=== PATIENT | female | born 1960 | race Caucasian/White ===

== ENCOUNTER 2023-06-17 08:30 | Day surgery (SDC) | payer MEDICARE, BC ==
[~2023-06-17] VITALS: Ht 162.6 cm; Wt 78.6 kg
[2023-06-17 09:40] VITALS: BP 122/76; PULSE 68; RESP 16
[2023-06-17] MEDS ORDERED: fentaNYL/PF 50MCG/1 ML 2ML syringe ONE (10:42)
[2023-06-17] MEDS ORDERED: MIDAZolam 1 MG/ML 5ML VIAL ONE (10:42)
[2023-06-17] MEDS ORDERED: LIDOcaine Viscous 15ml cup ONE (10:42)
[2023-06-17 11:24] VITALS: BP 104/57; PULSE 64; RESP 16; O2SAT 96
[2023-06-17 11:34] VITALS: BP 100/69; PULSE 82; RESP 16; O2SAT 96
[2023-06-17 11:44] VITALS: BP 106/60; PULSE 64; RESP 16; O2SAT 97
[2023-06-17 11:54] VITALS: BP 123/59; PULSE 81; RESP 16; O2SAT 97
== END 2023-06-17 12:14 ==
LOC: GI LAB 08:30
PROVIDERS: ATTEND Internal Medicine Gastroenterology
DX: K52.9 Noninfective gastroenteritis and colitis, unspecified (principal); R13.10 Dysphagia, unspecified; K29.50 Unspecified chronic gastritis without bleeding; K29.00 Acute gastritis without bleeding; G43.909 Migraine, unspecified, not intractable, without status migrainosus; E11.9 Type 2 diabetes mellitus without complications; Z79.899 Other long term (current) drug therapy; Z87.19 Personal history of other diseases of the digestive system
CPT/HCPCS: 43239; 45380; G0500; J2250; J3010; J7030; Z7512; 99152; A4620

== ENCOUNTER 2025-06-22 01:12 | Emergency (ER) | payer MEDICARE, BC, MEDICAID ==
[~2025-06-22] VITALS: Ht 162.6 cm; Wt 82.0 kg
--- NOTE | 2025-06-22 01:25 | Physician Documentation ---
History of Present Illness ~ Chief Complaint: Constipation Stated Complaint: PELVIS PAIN Time Seen by MD: 01:24 Source: patient, EMS, EMS notes reviewed, [facility] records Mode of Arrival: EMS Exam Limitations: no limitations HPI Chief Complaint: Constipation, worsening pelvic pain Caveat: None Independent Historians: Paramedics History of Present Illness: Patient is a 64-year-old woman brought in by paramedics from [facility] who has chronic pelvic pain described as sharp that has in between her legs and in her vagina. Patient states that her pain gets worse when she has constipation. Patient states that she has a moved her bowels for three days. Patient is requesting a stool softener. Patient denies any fevers. No nausea vomiting diarrhea. No upper abdominal pain. No fever. Patient was upset that the correction home would not give her a stool softener and that has why she is here. Patient has had six ER visits over the last weekend at [facility] for multiple different complaints. There was some concern for drug-seeking behavior. Review of systems: All systems were reviewed and are negative except for what is indicated in the history of present illness. Past Medical History: Chronic pelvic pain, constipation, UTI, pelvic floor dysfunction Past Surgical History: Pelvic floor surgery Social History: No tobacco use, no alcohol use, no drug use Medications: Reviewed as documented Nursing Notes Allergies: Reviewed as documented in Nursing Notes Medication Reconciliation Allergies: Coded Allergies: Aminopyridines (Verified Allergy, Severe, 06/22/25) frovatriptan (Verified Allergy, Unknown, 06/22/25) glatiramer (copolymer 1) (Verified Allergy, Unknown, 06/22/25) omega-3 acid ethyl esters (Verified Allergy, Unknown, 06/22/25) phentermine (Verified Allergy, Unknown, 06/22/25) sumatriptan (Verified Allergy, Unknown, 06/22/25) Physical Exam Vital Signs: RN Vital Signs have been reviewed: Yes, Temperature: 98.2, Source: Oral, Heart Rate: 67, Respiratory Rate: 19, BP: 127/58, Pulse Oximetry: 97, Weight: 82.000 Pulse Oximetry Reflects: adequate oxygenation Physical Exam General Appearance: MILD DISTRESS, CHRONICALLY ILL-APPEARING HEENT: Normal OP, moist oral mucosa, PERRL, EOMI Neck: supple, normal ROM, trachea midline Pulmonary: No respiratory distress, CTA, BS equal Cardiac: RRR, no murmur, rub or gallop, GI: nondistended, soft, nontender, normal bowel sounds, no guarding, no rebound : SUPRAPUBIC TENDERNESS Extremities: normal ROM, no swelling, non-tender Skin: intact, dry, warm, no rashes Neuro: AAOx3, speech is clear, no focal motor weakness Psych: normal affect, good eye contact, no apparent hallucination, normal speech Progress Results/Orders Results/Orders Completed Orders - ADRIAN IRAHETA MD Magnesium Hydrox Oral Susp. (Milk Of Mag (06/22/25 01:25) Ketorolac Trometh 15mg/Ml Vial (Toradol (06/22/25 01:25) Medications Received in ER Medications (Trade) Dose Ordered Sig/Brianna Route PRN Reason Start Time Stop Time Status Last Admin Dose Admin (milk of magnesia oral suspension) 30 ml ONCE ONCE PO 06/22/25 01:25 06/22/25 01:26 DC 06/22/25 01:35 30 ML (Toradol injection) 15 mg ONCE ONCE IM 06/22/25 01:25 06/22/25 01:26 DC 06/22/25 01:33 15 MG Vital Signs 06/22/25 06/22/25 06/22/25 01:16 01:33 01:38 Temp 98.2 98.2 Pulse 67 67 Resp 19 14 14 B/P (MAP) 127/58 111/52 Pulse Ox 97 96 Medical Decision Making Findings Differential diagnosis includes but is not limited to: Chronic pelvic pain, the patient Emergency department course/medical decision-making: Patient only wishes to have a stool softener and something for pain. Patient does not have any fever or other symptoms such as dysuria. Patient has chronic pelvic pain secondary to pelvic floor dysfunction. Patient is given milk of magnesia and Toradol 15 mg IM. Patient is afebrile and hemodynamically stable. Patient has a normal abdominal exam. Patient does not require imaging or lab work. There was no evidence of a medical or surgical emergency based on the history and physical. Patient is stable for discharge back to [facility]. Departure Time of Disposition: 01:24 Disposition: 03 [facility] Impression: Primary Impression: Constipation Qualified Codes: K59.00 - Constipation, unspecified Additional Impression: Chronic pelvic pain in female Discharge Instructions: Chronic Pain, Adult, Constipation, Adult Additional Instructions: FOLLOW UP WITH YOUR SPECIALIST FOR YOUR CHRONIC PAIN. Education Educated: Patient Educated regarding: diagnosis, treatment, need for follow up Signature Scribe Signature: NO SCRIBE Attestation: NO SCRIBE ADRIAN IRAHETA MD Jun 22, 2025 01:25
[2025-06-22] MEDS: ketorolac trometh 15mg/ml vial 15 MG/ML ML IM ONE (01:33)
[2025-06-22] MEDS: magnesium hydroxide 30ml (MOM) UD suspension PO ONE (01:35)
[2025-06-22 01:38] VITALS: BP 111/52; PULSE 67; RESP 14; TEMP 98.2; O2SAT 96
== END 2025-06-22 02:12 ==
LOC: ER 01:13
DX: K59.00 Constipation, unspecified (principal); R10.2 Pelvic and perineal pain
CPT/HCPCS: 96372; 99283; J1885

== ENCOUNTER 2025-06-26 01:00 | Emergency (ER) | payer MEDICARE, BC, MEDICAID ==
[~2025-06-26] VITALS: Ht 162.6 cm; Wt 72.7 kg
[2025-06-26 02:51] LABS: LEUKOCYTE ESTERASE ,URINE TRACE (Neg); NITRITES, URINE NEGATIVE (Neg); OCCULT BLOOD,URINE SMALL (Neg)
[2025-06-26 02:55] LABS: UA COLLECTION TYPE FOLEY CATH
[2025-06-26 03:18] LABS: MUCUS STRANDS FEW /LPF (Neg); SQUAMOUS EPITHELIAL CELL,UR FEW /LPF (FEW)
--- NOTE | 2025-06-26 03:35 | Physician Documentation ---
History of Present Illness ~ Chief Complaint: Vaginal pain Stated Complaint: PELVIC PAIN Time Seen by MD: 03:27 HPI Patient presents to the emergency room with chronic pelvic pain and headache. Patient has history of chronic pelvic pain that has seen here earlier this week for it and given constipation medications for it. Patient concerned today as she has significant headache. Patient does have history of headaches. No fevers. Medication Reconciliation Allergies: Coded Allergies: Aminopyridines (Verified Allergy, Severe, 06/26/25) frovatriptan (Verified Allergy, Unknown, 06/26/25) glatiramer (copolymer 1) (Verified Allergy, Unknown, 06/26/25) omega-3 acid ethyl esters (Verified Allergy, Unknown, 06/26/25) phentermine (Verified Allergy, Unknown, 06/26/25) sumatriptan (Verified Allergy, Unknown, 06/26/25) Review of Systems ROS All review of systems negative except as per HPI Physical Exam Vital Signs: Temperature: 97.7, Source: Oral, Heart Rate: 68, Respiratory Rate: 14, BP: 102/62, Pulse Oximetry: 92, Weight: 72.730 Oxygen Flow Rate: 0 Physical Exam General: Patient is sleeping, easily arousable in no acute distress Head: Normocephalic and atraumatic. No tenderness to palpation over temporal arteries Eyes: Conjunctival normal. EOMI. PERRL. ENT: Mucous membranes moist. Neck: Supple, trachea is midline. No meningismus Chest: Clear to auscultation bilaterally without rales, rhonchi, or wheezes. There is no accessory muscle use or retractions. Cardiac: RRR without murmurs, gallops, or rubs. Abd: Soft, nondistended, nontender, with normoactive bowel sounds. No guarding, rebound, or rigidity. Neuro: Cranial nerves II-XII grossly intact. No focal neuro deficits. Progress Results/Orders Results/Orders Orders - NAHUN MONGE MD Straight Cath For Urine Sample (06/26/25 01:14) Cult Urine + [place] [address] (06/26/25 03:19) Completed Orders - NAHUN MONGE MD Ua W/Microscopic, Cult If Ind (06/26/25 01:59) Cbc/Diff (06/26/25 03:32) BMP (06/26/25 03:32) Procalcitonin (06/26/25 03:32) Normal Saline 1000ml (0.9% Sodium Chlori (06/26/25 03:35) Acetaminophen 1,000mg/100ml Iv (Ofirmev (06/26/25 03:35) Medications Received in ER Medications (Trade) Dose Ordered Sig/Brianna Route PRN Reason Start Time Stop Time Status Last Admin Dose Admin Sodium Chloride 1,000 ml @ 1,000 mls/hr ONCE ONCE IV 06/26/25 03:35 06/26/25 04:34 DC 06/26/25 04:02 1,000 MLS/HR Acetaminophen 100 ml @ 400 mls/hr ONCE ONCE IV 06/26/25 03:35 06/26/25 03:50 DC 06/26/25 04:03 400 MLS/HR Vital Signs 06/26/25 06/26/25 06/26/25 01:08 02:31 04:17 Temp 97.7 97.7 97.7 Pulse 66 68 64 Resp 14 14 14 B/P (MAP) 113/66 102/62 (75) 106/63 (77) Pulse Ox 95 92 95 O2 Flow Rate 0 0 0 Laboratory Tests Test 06/26/25 01:59 06/26/25 04:06 Urine Specimen Description Monahan cath Urine Color Yellow Urine Clarity Clear Urine pH 6.0 Urine Specific [place] <=1.005 Urine Protein Negative Urine Glucose (UA) Negative Urine Ketones Negative Urine Occult Blood Small Urine Nitrite Negative Urine Bilirubin Negative Urine Urobilinogen 0.2 Urine Leukocyte Esterase Trace H Urine RBC 3-10 Urine WBC 0-4 Urine Squamous Epithelial Cells Few Urine Bacteria None seen Urine Mucus Few Urine Culture Indicated Indicated Volume Urine Centrifuged 10 ml Urine Comment White Blood Count 5.3 Red Blood Count 4.16 L Hemoglobin 12.1 Hematocrit 37.3 Mean Corpuscular Volume 89.7 Mean Corpuscular Hemoglobin 29.0 Mean Corpuscular Hemoglobin Concent 32.4 L Red Cell Distribution Width 15.8 H Platelet Count 310 Mean Platelet Volume 8.1 Neutrophils (%) (Auto) 53.1 Lymphocytes (%) (Auto) 32.2 Monocytes (%) (Auto) 6.8 Eosinophils (%) (Auto) 7.1 H Basophils (%) (Auto) 0.8 Neutrophils # (Auto) 2.8 Lymphocytes # (Auto) 1.7 Monocytes # (Auto) 0.4 Eosinophils # (Auto) 0.4 Basophils # (Auto) 0.0 CBC Comment Sodium Level 142 Potassium Level 3.8 Chloride Level 106 Carbon Dioxide Level 27.7 Anion Gap 8 Blood Urea Nitrogen 25 H Creatinine 0.78 Estimated GFR/1.73 m2 74 BUN/Creatinine Ratio 32.1 H Glucose Level 132 H Calcium Level 9.2 Albumin 3.5 Procalcitonin < 0.05 Chemistry Comments Microbiology Date/Time Source Procedure Growth Status 06/26/25 03:19 Urine Monahan Cath Urine Culture - Preliminary Culture received. Resulted Medical Decision Making Findings Patient presents to the emergency room for evaluation headache and chronic pelvic pain. Patient is sleeping and he had not feel she requires CT scan of her head. No meningismus. Labs reassuring. Departure Disposition: HOME / SELF CARE / HOMELESS Impression: Primary Impression: Chronic pelvic pain in female Additional Impression: Headache Condition: Improved Discharge Instructions: Pelvic Pain, Female, [id number] Referrals: NO PRIMARY CARE PROVIDER (PCP) Signature Scribe Signature: No scribe Attestation: The note accurately reflects work and decisions made by me.Nahun Monge MD 06/26/25 04:50 NAHUN MONGE MD Jun 26, 2025 03:34
[2025-06-26] MEDS: normal saline 1000ml 1,000 ML IV ONE (04:02)
[2025-06-26] MEDS: acetaminophen 1,000mg/100ml IV 100 ML IV ONE (04:03)
[2025-06-26 04:17] LABS: MEAN PLATELET VOLUME 8.1 FL (7.4-10.4); RED CELL DISTRIBUTION WIDTH 15.8 % (11.5-14.5)
[2025-06-26 04:26] LABS: CREATININE 0.78 MG/DL (0.40-0.90); TOTAL CARBON DIOXIDE 27.7 MMOL/L (24-32); eCRCL 62 ML/MIN; eGFR 74 ML/MIN
[2025-06-26 05:04] VITALS: BP 130/78; PULSE 68; RESP 14; TEMP 97.7; O2SAT 98
== END 2025-06-26 09:38 | disposition home or self-care (01) ==
LOC: ER 01:01
DX: G89.29 Other chronic pain (principal); R10.2 Pelvic and perineal pain; R51.9 Headache, unspecified
CPT/HCPCS: 36415; 80048; 81001; 84145; 85025; 87088; 96361; 96374; 99284; J0131; J7030

== ENCOUNTER 2025-06-28 04:09 | Emergency (ER) | payer MEDICARE, BC, MEDICAID ==
[~2025-06-28] VITALS: Ht 162.6 cm; Wt 82.7 kg
[2025-06-28 04:25] VITALS: BP 92/54; PULSE 72; RESP 16; TEMP 98.1; O2SAT 92
--- NOTE | 2025-06-28 05:37 | Physician Documentation ---
History of Present Illness ~ Chief Complaint: Abdominal Pain Stated Complaint: GENERAL PAIN M BLS Time Seen by MD: 05:17 HPI Patient presents to the emergency room for evaluation of chronic pelvic pain. She lives at an assisted living facility and she was not due for her pain medicine therefore she insisted to come to the emergency room. EMS explained to her by the time that she is probably seen at the emergency room it would be time for pain medication any ways however patient insisted on coming to the emergency room. Currently she is sleeping comfortably in her bedroom. I saw the patient for the same complaint two nights ago. Medication Reconciliation Allergies: Coded Allergies: Aminopyridines (Verified Allergy, Severe, 06/26/25) frovatriptan (Verified Allergy, Unknown, 06/26/25) glatiramer (copolymer 1) (Verified Allergy, Unknown, 06/26/25) omega-3 acid ethyl esters (Verified Allergy, Unknown, 06/26/25) phentermine (Verified Allergy, Unknown, 06/26/25) sumatriptan (Verified Allergy, Unknown, 06/26/25) Review of Systems ROS All review of systems negative except as per HPI Physical Exam Vital Signs: Temperature: 98.1, Source: Oral, Heart Rate: 72, Respiratory Rate: 16, BP: 92/54, Pulse Oximetry: 92, Weight: 82.700 Physical Exam General: Patient is sleeping comfortably, easily arousable in no acute distress Head: Normocephalic and atraumatic. Eyes: Conjunctival normal. EOMI. PERRL. ENT: Mucous membranes moist. Neck: Supple, trachea is midline. Chest: Clear to auscultation bilaterally without rales, rhonchi, or wheezes. There is no accessory muscle use or retractions. Cardiac: RRR without murmurs, gallops, or rubs. : Deferred Progress Results/Orders Results/Orders Vital Signs 06/28/25 04:25 Temp 98.1 Pulse 72 Resp 16 B/P (MAP) 92/54 Pulse Ox 92 Medical Decision Making Findings Patient presented to the emergency room for evaluation of chronic pelvic pain as per HPI. Patient's pain is chronic in nature. Patient is due for her pain medicine and 10 minutes and I will discharge her back to her facility for it. Departure Disposition: 01 HOME / SELF CARE / HOMELESS Impression: Primary Impression: Chronic pelvic pain in female Condition: Stable Discharge Instructions: General Discharge Instructions Referrals: NO PRIMARY CARE PROVIDER (PCP) Signature Scribe Signature: No scribe Attestation: The note accurately reflects work and decisions made by me.Nahun Monge MD 06/28/25 05:36 NAHUN MONGE MD Jun 28, 2025 05:37
== END 2025-06-28 06:41 | disposition home or self-care (01) ==
LOC: ER 04:10
DX: G89.29 Other chronic pain (principal); R10.2 Pelvic and perineal pain
CPT/HCPCS: 99283

== ENCOUNTER 2025-08-28 17:02 | Emergency (ER) | payer MEDICARE, BC, MEDICAID ==
[~2025-08-28] VITALS: Ht 160 cm; Wt 65.8 kg
--- NOTE | 2025-08-28 18:40 | Physician Documentation ---
History of Present Illness ~ Chief Complaint: Mental Health Eval Stated Complaint: UTI SYMPTOMS Time Seen by MD: 18:29 HPI Patient presents to the emergency room with thoughts of harming herself secondary to chronic pain associated with her pelvic area. She reports that she has been having a suprapubic catheter for some time and whenever she gets a urinary tract infection she begins suffering from this pain. She reports that has a doctors do not want to treat her urinary tract infection as she has colonized. She endorses suicidal thoughts. This is patient's 4th visit in two months here at [facility] and Patient has had six ER visits over at [facility] for multiple different complaints before that in a short period of time. Medication Reconciliation Allergies: Coded Allergies: Aminopyridines (Verified Allergy, Severe, 08/28/25) frovatriptan (Verified Allergy, Unknown, 08/28/25) glatiramer (copolymer 1) (Verified Allergy, Unknown, 08/28/25) omega-3 acid ethyl esters (Verified Allergy, Unknown, 08/28/25) phentermine (Verified Allergy, Unknown, 08/28/25) sumatriptan (Verified Allergy, Unknown, 08/28/25) Scheduled Atogepant (Qulipta), 1 TAB PO DAILY, (Reported) Clonidine HCl (Clonidine HCl), 1 TAB PO BID, (Reported) Clopidogrel Bisulfate (Clopidogrel), 1 TAB PO DAILY, (Reported) Duloxetine HCl (Duloxetine HCl), 1 CAP PO DAILY, (Reported) Fosfomycin Tromethamine (Fosfomycin Tromethamine), 1 PO ONCE, (Reported) Gabapentin (Gabapentin), 1 TAB PO TID, (Reported) Levetiracetam (Levetiracetam), 2 TAB PO BID, (Reported) Memantine HCl (Memantine HCl), 1 TAB PO HS, (Reported) Metformin HCl (Metformin HCl), 1 TAB PO DAILY, (Reported) Oxybutynin Chloride (Oxybutynin Chloride), 1 TAB PO TID, (Reported) Pantoprazole Sodium (Pantoprazole Sodium), 1 TAB PO DAILY, (Reported) Phenazopyridine Hcl* (Phenazopyridine Hcl*), 1 TAB PO Q8H, (Reported) Risperidone (Risperidone), 1 TAB PO HS, (Reported) Scheduled PRN ONDANSETRON ODT 4mg tablet (Ondansetron Odt), 1 TAB PO Q8H PRN for nausea/vomiting, (Reported) Miscellaneous Medications Estradiol (Estradiol), (Reported) Oxycodone Hcl IR* (Oxycodone IR*), (Reported) Durable Medical Equipment Syringe,Safety W-Ndl,3Ml (Integra Syringe), IM, (Reported), (DME) Review of Systems ROS All review of systems negative except as per HPI Physical Exam Vital Signs: Temperature: 98.4, Source: Temporal, Heart Rate: 79, Respiratory Rate: 14, BP: 148/90, Pulse Oximetry: 93, Weight: 65.800 Oxygen Flow Rate: 0 Physical Exam General: Patient is awake, alert, oriented x4 in no acute distress Head: Normocephalic and atraumatic. Eyes: Conjunctival normal. EOMI. PERRL. ENT: Mucous membranes moist. Neck: Supple, trachea is midline. Chest: Clear to auscultation bilaterally without rales, rhonchi, or wheezes. There is no accessory muscle use or retractions. Cardiac: RRR without murmurs, gallops, or rubs. Abd: Soft, nondistended, nontender, with suprapubic catheter in place. No signs of infection Psych: Cooperative, good eye contact, suicidal Progress Results/Orders Results/Orders Orders - NAHUN MONGE MD 1799.11 (08/28/25 18:40) Vital Signs 08/28/25 08/28/25 17:25 19:30 Temp 98.4 Pulse 79 Resp 14 20 B/P (MAP) 148/90 Pulse Ox 93 O2 Flow Rate 0 Laboratory Tests Test 08/28/25 18:22 08/28/25 19:19 08/28/25 20:23 White Blood Count 6.5 Red Blood Count 3.78 L Hemoglobin 11.1 L Hematocrit 34.3 L Mean Corpuscular Volume 90.9 Mean Corpuscular Hemoglobin 29.4 Mean Corpuscular Hemoglobin Concent 32.3 L Red Cell Distribution Width 15.8 H Platelet Count 361 Mean Platelet Volume 7.9 Neutrophils (%) (Auto) 69.7 Lymphocytes (%) (Auto) 21.6 Monocytes (%) (Auto) 4.6 Eosinophils (%) (Auto) 3.6 Basophils (%) (Auto) 0.5 Neutrophils # (Auto) 4.5 Lymphocytes # (Auto) 1.4 Monocytes # (Auto) 0.3 Eosinophils # (Auto) 0.2 Basophils # (Auto) 0.0 CBC Comment Sodium Level 139 Potassium Level 3.9 Chloride Level 107 Carbon Dioxide Level 25.9 Anion Gap 6 L Blood Urea Nitrogen 31 H Creatinine 0.75 Estimated GFR/1.73 m2 77 BUN/Creatinine Ratio 41.3 H Glucose Level 255 H Calcium Level 7.9 L Albumin 3.3 L Thyroid Stimulating Hormone (TSH) 0.57 Chemistry Comments Ethyl Alcohol Level < 10 SARS-CoV-2 Antigen (Rapid) Negative Urine Specimen Description Suprapubic cath Urine Color Yellow Urine Clarity Turbid Urine pH 7.5 Urine Specific [place] 1.020 Urine Protein 100 H Urine Glucose (UA) 100 H Urine Ketones Negative Urine Occult Blood Small Urine Nitrite Positive H Urine Bilirubin Negative Urine Urobilinogen 0.2 Urine Leukocyte Esterase Large H Urine RBC 3-10 Urine WBC 5-10 H Urine Squamous Epithelial Cells Few Urine Amorphous Phosphates 1+ Urine Bacteria 2+ Urine Mucus Few Urine Culture Indicated Indicated Volume Urine Centrifuged 10 ml Urine Comment Drug Screen Comment Medical Decision Making Additional information obtaine: old records Findings Patient presents to the emergency room for suicidal ideation secondary to chronic pelvic pain. She has had multiple ER visits for her chronic pelvic pain. Labs reviewed and that has no evidence of major pathologic derangements. Patient is medically cleared for mental health evaluation. Noted urinary tract infection but this is reported to be chronic in nature and no antibiotics indicated that has no fever or encephalopathy. Differential Dx:Considerations: Include: Alcohol abuse, Anxiety, Bipolar disorder, Conversion disorder, Depression, Encephaloathy, Homicidal, Panic disorder, Personality disorder, Schizophrenia, Substance abuse, Suicidal, Other Departure Disposition: 30 STILL A PATIENT Impression: Primary Impression: Suicidal ideation Additional Impressions: Chronic pelvic pain in female Chronic urinary tract infection Condition: Guarded Referrals: NO PRIMARY CARE PROVIDER (PCP) Signature Scribe Signature: No scribe Attestation: The note accurately reflects work and decisions made by me.Nahun Monge MD 08/28/25 20:03 NAHUN MONGE MD Aug 28, 2025 18:40
[2025-08-28 18:51] LABS: MEAN PLATELET VOLUME 7.9 FL (7.4-10.4); RED CELL DISTRIBUTION WIDTH 15.8 % (11.5-14.5)
[2025-08-28 19:16] LABS: CREATININE 0.75 MG/DL (0.40-0.90); TOTAL CARBON DIOXIDE 25.9 MMOL/L (24-32); eCRCL 61 ML/MIN; eGFR 77 ML/MIN
[2025-08-28] MEDS ORDERED: [UNRECOGNIZED DRUG - CODE] IM (19:41)
[2025-08-28] MEDS ORDERED: RISP-31 PO (19:41)
[2025-08-28] MEDS ORDERED: LEVE750T PO (19:41)
[2025-08-28] MEDS ORDERED: CLOP75TA34 PO (19:41)
[2025-08-28] MEDS ORDERED: OXYC-658 (19:41)
[2025-08-28] MEDS ORDERED: DULO60CA65 PO (19:41)
[2025-08-28] MEDS ORDERED: METF-438 PO (19:41)
[2025-08-28] MEDS ORDERED: ESTR42.510 (19:41)
[2025-08-28] MEDS ORDERED: CLON0.3T PO (19:41)
[2025-08-28] MEDS ORDERED: ONDA-243 PO (19:41)
[2025-08-28] MEDS ORDERED: OXYB5TAB21 PO (19:41)
[2025-08-28] MEDS ORDERED: GABA-1405 PO (19:41)
[2025-08-28] MEDS ORDERED: ATOG60TA PO (19:41)
[2025-08-28] MEDS ORDERED: FOSF3PAC4 PO (19:41)
[2025-08-28] MEDS ORDERED: PHEN-888 PO (19:41)
[2025-08-28] MEDS ORDERED: MEMA10TA22 PO (19:41)
[2025-08-28] MEDS ORDERED: PANT40TA54 PO (19:41)
[2025-08-28 19:47] LABS: ETHANOL < 10 MG/DL (<10)
[2025-08-28 20:57] LABS: LEUKOCYTE ESTERASE ,URINE LARGE (Neg); NITRITES, URINE POSITIVE (Neg); OCCULT BLOOD,URINE SMALL (Neg)
[2025-08-28 21:02] LABS: UA COLLECTION TYPE SUPRAPUBIC CATH
[2025-08-28 21:03] LABS: AMORPHOUS PHOSPHATES 1+; MUCUS STRANDS FEW /LPF (Neg); SQUAMOUS EPITHELIAL CELL,UR FEW /LPF (FEW)
[2025-08-28 21:44] LABS: URINE AMPHETAMINE SCREEN NEGATIVE (Neg); URINE BARBITUATE SCREEN NEGATIVE (Neg); URINE BENZODIAZEPINES SCREEN NEGATIVE (Neg); URINE CANNABINOID SCREEN NEGATIVE (Neg); URINE COCAINE SCREEN NEGATIVE (Neg); URINE METHADONE SCREEN NEGATIVE (Neg); URINE OPIATE SCREEN NEGATIVE (Neg); URINE PHENCYCLIDINE SCREEN NEGATIVE (Neg)
[2025-08-28] MEDS ORDERED: iohexol 300mg/ml 100ml inj. ONE (22:14)
[2025-08-28] MEDS: HYDROcodone/acetaminophen 5mg/325mg tablet PO ONE (22:55)
--- NOTE | 2025-08-28 23:44 | RADIOLOGY REPORT ---
COMPUTERIZED TOMOGRAPHY ABDOMEN AND PELVIS WITH CONTRAST REASON FOR EXAM: suspected abcess. Pain. COMPARISON: None TECHNIQUE: The exam was performed on a Multidetector scanner. Spiral scans were acquired from the diaphragm to the symphysis pubis after administration of IV contrast. 2-D coronal and sagittal reformatted images were provided. Radiation optimization: All CT scans at this facility use at least one of these dose optimization techniques: Automated exposure control mA and/or kV adjustment per patient size (includes targeted exams where dose is matched to clinical indication) or iterative reconstruction. CONTRAST ADMINISTRATION: 100 mL omnipaque 300 intravenously RADIATION DOSE: CTDI: 26 mGy DLP: 1350 mGy-cm FINDINGS: The visualized lung bases are grossly clear. There is no pleural effusion. There is no pericardial effusion. The spleen is not enlarged. The liver is enlarged at 21.9 cm in length. No focal liver lesion is identified. The liver surface appears smooth. The portal vein is patent. The gallbladder is surgically absent. There is a 0.9 cm cystic density in the pancreatic tail, likely a side branch IPMN. The adrenal glands appear normal. The kidneys enhance symmetrically. No solid renal mass is identified. There is a 3 mm nonobstructive calculus at the inferior pole of the left kidney. There is no hydronephrosis of either kidney. The urinary bladder is thick walled and distended. There is a suprapubic catheter with the balloon inside the urinary bladder. The uterus is absent. The ovaries are within normal limits. No free fluid is identified in the abdomen or pelvis. No pathologic lymphadenopathy is identified by size criteria. The colonic stool burden is small to moderate. The appendix is normal. There is no Pathologic distention of the small bowel. There is no abdominal aortic aneurysm. No intra-abdominal or pelvic abscess is identified. No acute osseous abnormality is identified. IMPRESSION: Thick-walled urinary bladder concerning for cystitis. Correlate clinically and with urinalysis. No intra-abdominal or pelvic abscess or free fluid is identified. Prior cholecystectomy and hysterectomy. Hepatomegaly at 21.9 cm in length.
[2025-08-29] MEDS: phenazopyridine 100mg tablet PO SCH (00:51)
[2025-08-29] MEDS: pantoprazole 40mg Tablet.DR PO SCH (08:30)
[2025-08-29] MEDS: duloxetine 30mg CAPSULE.DR PO SCH (08:31)
[2025-08-29 15:51] VITALS: BP 136/88; PULSE 79; RESP 18; TEMP 98.6; O2SAT 99
== END 2025-08-29 15:56 | disposition home or self-care (01) ==
LOC: ER 17:02
DX: R45.851 Suicidal ideations (principal); N39.0 Urinary tract infection, site not specified; Z20.822 Contact with and (suspected) exposure to COVID-19; Z79.899 Other long term (current) drug therapy; Z88.8 Allergy status to other drugs, medicaments and biological substances
CPT/HCPCS: 36415; 74177; 80048; 80305; 81001; 84443; 85025; 87088; 87811; 99285; G0480; Q9967; 80320

== ENCOUNTER 2025-09-06 04:51 | Emergency (ER) | payer MEDICARE, BC, MEDICAID ==
[~2025-09-06] VITALS: Ht 162.6 cm; Wt 72.7 kg
[~2025-09-06 04:51] MED LIST: ATOG60TA PO; CLON0.3T PO; CLOP75TA34 PO; DULO60CA65 PO; ESTR42.510; FOSF3PAC4 PO; GABA-1405 PO; LEVE750T PO; MEMA10TA22 PO; METF-438 PO; ONDA-243 PO; OXYB5TAB21 PO; OXYC-658; PANT40TA54 PO; PHEN-888 PO; RISP-31 PO; [UNRECOGNIZED DRUG - CODE] IM
--- NOTE | 2025-09-06 05:18 | Physician Documentation ---
History of Present Illness ~ Chief Complaint: Chest Pain Stated Complaint: CHEST PAINS X 14 HOURS Time Seen by MD: 05:16 Primary Medical Doctor: FINA MILLAN Patient presents to the emergency room with chest pain that has started yesterday. Sharp in nature as well as squeezing in nature. She reports that she has recently seen at [facility] after she has been transported in the hospital and reports that they actively coded her in defibrillated her. During her stay there she reports a negative stress test. Pain is exacerbated with palpation. Date: Sep 06, 2025 Time: 08:50 Additional note by Dakota Castro DO: I took over the care of this patient from previous physician. I reviewed any previous notes available, obtain my own history, review of systems and physical examination was performed by myself. The patient confirms the story above. Additionally records from [place] were obtained. The patient's stay there in June of this year was actually not for cardiac arrest and defibrillation but rather for recurrent falls. She also did have a visit [facility] where she suffered respiratory failure and had to be intubated. During her most recent visit she had been treated for colonization versus UTI of her suprapubic catheter as well as undergone a Lexiscan which was negative. Medication Reconciliation Allergies: Coded Allergies: Aminopyridines (Verified Allergy, Severe, 09/06/25) frovatriptan (Verified Allergy, Unknown, 09/06/25) glatiramer (copolymer 1) (Verified Allergy, Unknown, 09/06/25) omega-3 acid ethyl esters (Verified Allergy, Unknown, 09/06/25) phentermine (Verified Allergy, Unknown, 09/06/25) sumatriptan (Verified Allergy, Unknown, 09/06/25) Scheduled Atogepant (Qulipta), 1 TAB PO DAILY, (Reported) Clonidine HCl (Clonidine HCl), 1 TAB PO BID, (Reported) Clopidogrel Bisulfate (Clopidogrel), 1 TAB PO DAILY, (Reported) Duloxetine HCl (Duloxetine HCl), 1 CAP PO DAILY, (Reported) Fosfomycin Tromethamine (Fosfomycin Tromethamine), 1 PO ONCE, (Reported) Gabapentin (Gabapentin), 1 TAB PO TID, (Reported) Levetiracetam (Levetiracetam), 2 TAB PO BID, (Reported) Memantine HCl (Memantine HCl), 1 TAB PO HS, (Reported) Metformin HCl (Metformin HCl), 1 TAB PO DAILY, (Reported) Oxybutynin Chloride (Oxybutynin Chloride), 1 TAB PO TID, (Reported) Pantoprazole Sodium (Pantoprazole Sodium), 1 TAB PO DAILY, (Reported) Phenazopyridine Hcl* (Phenazopyridine Hcl*), 1 TAB PO Q8H, (Reported) Risperidone (Risperidone), 1 TAB PO HS, (Reported) Scheduled PRN ONDANSETRON ODT 4mg tablet (Ondansetron Odt), 1 TAB PO Q8H PRN for nausea/vomiting, (Reported) Miscellaneous Medications Estradiol (Estradiol), (Reported) Oxycodone Hcl IR* (Oxycodone IR*), (Reported) Durable Medical Equipment Syringe,Safety W-Ndl,3Ml (Integra Syringe), IM, (Reported), (DME) Review of Systems ROS All review of systems negative except as per HPI Physical Exam Vital Signs: Temperature: 97.4, Source: Temporal, Heart Rate: 74, Respiratory Rate: 12, BP: 127/60, Pulse Oximetry: 90, Weight: 72.720 Physical Exam General: Patient is awake, alert, oriented x4 in no acute distress . Examined in bed 3. Head: Normocephalic and atraumatic. Eyes: Conjunctival normal. Left eye blind ENT: Mucous membranes moist. Neck: Supple, trachea is midline. Chest: Clear to auscultation bilaterally without rales, rhonchi, or wheezes. There is no accessory muscle use or retractions. Tenderness to palpation to left sternocostal border Cardiac: RRR without murmurs, gallops, or rubs. Abd: Soft, nondistended, nontender, with normoactive bowel sounds. No guarding, rebound, or rigidity. Suprapubic catheter noted Extremities: Normal strength. Normal range of motion. No deformities or edema. No calf tenderness to palpation Progress Results/Orders Results/Orders Orders - NAHUN MONGE MD Chest,Single View (09/06/25 05:01) Monitor (09/06/25 05:01) Saline Lock (09/06/25 05:01) Oxygen (09/06/25 05:01) Electrocardiogram (09/06/25 05:01) Completed Orders - NAHUN MONGE MD Chest,Single View (09/06/25 05:01) BMP (09/06/25 05:01) PBNP (09/06/25 05:01) Electrocardiogram (09/06/25 05:01) Hs Troponin I W Calculations (09/06/25 05:01) Hs Troponin I W Calculations (09/06/25 07:01) Methylnaltrexone Br Inj (Relistor Inj (09/06/25 06:05) Vital Signs 09/06/25 09/06/25 09/06/25 09/06/25 05:01 05:46 05:50 06:18 Temp 97.4 Pulse 74 76 Resp 12 15 13 18 B/P (MAP) 127/60 117/65 (82) Pulse Ox 90 92 O2 Flow Rate 0 09/06/25 09/06/25 09/06/25 06:18 07:46 08:56 Temp 97.4 97.4 Pulse 71 63 67 Resp 18 15 18 B/P (MAP) 122/70 (87) 135/66 (89) 122/60 Pulse Ox 93 93 98 O2 Flow Rate 0 0 Laboratory Tests Test 09/06/25 05:42 09/06/25 06:34 09/06/25 07:26 CBC Comment Sodium Level 142 Potassium Level 4.1 Chloride Level 110 H Carbon Dioxide Level 21.9 L Anion Gap 10 Blood Urea Nitrogen 34 H Creatinine 1.08 H Estimated GFR/1.73 m2 51 BUN/Creatinine Ratio 31.5 H Glucose Level 240 H Calcium Level 8.5 Troponin I High Sensitivity 5 5 Pro-B-Type Natriuretic Peptide 54 Albumin 3.0 L Chemistry Comments White Blood Count 6.1 Red Blood Count 3.36 L Hemoglobin 10.1 L Hematocrit 31.3 L Mean Corpuscular Volume 93.2 Mean Corpuscular Hemoglobin 29.9 Mean Corpuscular Hemoglobin Concent 32.1 L Red Cell Distribution Width 17.9 H Platelet Count 321 Mean Platelet Volume 7.7 Neutrophils (%) (Auto) 67.1 Lymphocytes (%) (Auto) 20.5 L Monocytes (%) (Auto) 6.4 Eosinophils (%) (Auto) 5.1 Basophils (%) (Auto) 0.9 Neutrophils # (Auto) 4.1 Lymphocytes # (Auto) 1.3 Monocytes # (Auto) 0.4 Eosinophils # (Auto) 0.3 Basophils # (Auto) 0.1 Troponin I High Sens Percent Delta 0 Troponin I Hi Sens Absolute Change 0 EKG/XRAY/CT/US/VASC/MRI EKG : Additional Comment EKG interpreted by myself shows time of 0459, rate 73, sinus rhythm, normal axis, no ST changes. Chest X-Ray : Additional Comments Exam: CHEST,SINGLE VIEW CHEST RADIOGRAPH Indication: CP Technique: Single frontal view of the chest was obtained. Comparison: None FINDINGS: Lines and Tubes: None Lungs: No focal consolidation. Pleura: No effusion. No pneumothorax. Cardiomediastinal contours: Unremarkable Bones: No acute osseous abnormality. IMPRESSION: 1. No acute cardiopulmonary disease. Medical Decision Making Additional information obtaine: old records Findings Patient presents to the emergency room with chest pain as per HPI. D ifferentials include but are not limited to ACS, musculoskeletal pain, pulmonary embolism, aortic pathology therefore emergent labs and imaging indicated. Chest x-ray is reassuring. Troponins reassuring. Although she has elevated heart score her chest pain is atypical and has a reported negative stress test in June. I feel she is safe for outpatient management. Strong suspicion for musculoskeletal given tenderness elicited with palpation. Date: Sep 06, 2025 Time: 08:51 Additional note by Dakota Castro DO: I took over the care of this patient from previous physician. I reviewed any previous notes available, obtain my own history, review of systems and physical examination was performed by myself. Facility Status: ED Holds, [facility] process The plan was discussed with the patient, who demonstrates clear understanding of the plan and is in agreement with the plan unless otherwise noted in the chart. All questions have been answered, all concerns were addressed unless otherwise documented. I was available throughout their ED stay for frequent reassessment and questions. Differential Diagnoses (considered and possible or likely): [Differential diagnosis considered includes chest wall pain, pleurisy, pneumonia, pulmonary embolus, GERD, esophagitis, gastritis, anxiety, stress reaction, costochondritis, acute coronary syndrome, aortic dissection, pericarditis, myocarditis, or pneumothorax.] ??Differential Diagnoses (considered and unlikely, not requiring evaluation currently): [Aortic/great vessels dissection was considered but it is unlikely based on absence of ripping, tearing, migratory chest pain, absence of syncope or focal neurologic deficits, physical examination indicating equal and symmetric pulses.] MDM Data Please see [facility] for the following: Independent Historians and external Records Review. Historian: [Patient] Independent Historians: ?[Record review] Medication Management: [Reviewed medication list] Social History and determinants: [Reviewed] Please see the body of the note for the following: Any independent interpretations of ECG, imaging studies. All vitals signs/haemodynamics, ordered tests were independently reviewed and interpreted by myself. Nursing triage complaint and vitals reviewed, additional nursing notes were reviewed as available and I agree unless otherwise noted or documented in contradiction in the chart Vital Signs: Independently reviewed Labs: Independently interpreted Imaging: Independently interpreted Old Medical Records: Independently reviewed, see [facility] for relevant summary and information Pulse Oximetry: [98%] interpreted as [normal on room air] by me [Diesel Engine Specialist: [Regular Rate, Regular rhythm, no ectopy, NSR] reviewed and interpreted by me] Additionally notably showing: [Hemodynamically stable. Unremarkable laboratory workup including 2- troponins. Chest x-ray is unremarkable.] Tests considered but not ordered include: [Echo/stress test has been considered, however the patient had negative stress test less than two months ago.] Social Determinants of Health Impact: Patient was evaluated in [facility] [place] healthcare due to below par ratio of patient to medical providers. [] Comorbid Conditions Impacting Present Evaluation and Care/Treatment: [Multiple, see list] Management Discussions with other Healthcare Providers: [None] Treatment and Disposition Medication Management (Given or considered): []. See EMR for details Consideration for Hospitalization/Escalation/Deescalation of Care: Admission for observation has been considered, [however the patient is able to tolerate p.o., their symptoms are controlled, they are able to rely on oral medications, and their chief complaint/diagnosis can be managed on outpatient basis.] ?ED Course:?[Negative cardiac workup.] ?Shared decision making:?[Patient is hemodynamically stable for discharge home with follow with their primary care provider. [ ] Specific and cautious return precautions provided and discussed with full understanding. Any incidental findings were also discussed and follow up recommendations given. [] All questions answered. Patient/family were able to verbalize back return precautions. Patient/family agree to plan. Copies of imaging and laboratory studies were provided.] Code status:?FULL Please see the full Electronic Medical Record for full details of nursing documentation, medications list, other records of complete past medical history and conditions, vital signs, laboratory studies, and any radiologic study interpretations by radiologists. Portions of this note were completed using [employer] dictation software and as a result there may exist minor errors in spelling. I have reviewed elements of past family and social history and agree as included in note. Heart Score: 4 Differential Dx:Considerations: Include: angina, aortic dissection, chest wall pain, cholelithiasis, CHF, costochondritis, esophageal reflux/spasm, gastritis, herpes zoster, myocardial infarction, pericarditis, pleuritis, pancreatitis, pneumonia, pneumothorax, pulmonary embolus, other Departure Disposition: 01 HOME / SELF CARE / HOMELESS Impression: Primary Impression: Chest wall pain Condition: Stable Discharge Instructions: Chest Wall Pain Additional Instructions: Follow up with your doctor as scheduled. Workup today was negative for anything dangerous Referrals: NO PRIMARY CARE PROVIDER (PCP) Signature Scribe Signature: No scribe Attestation: The note accurately reflects work and decisions made by me.Nahun Monge MD 09/06/25 05:58 NAHUN MONGE MD Sep 06, 2025 05:18 DAKOTA CASTRO DO Sep 06, 2025 08:54
--- NOTE | 2025-09-06 05:28 | ELECTROCARDIOGRAPH REPORT ---
[facility] Test Date: 2025-09-06 Test Time: 04:59:24 Pat Name: MALCOLM OLIVAREZ Department: EMERGENCY ROOM [id number] Room: Gender: F Regional Sales Trainer: MAYRA : 1960 Requested By: DAWOOD HILLIARD Order Number: [id number] Reading MD: Dr. EWA Conley Measurements Intervals [place] Rate: 73 P: 120 WI: 158 QRS: 37 QRSD: 90 T: 72 QT: 602 QTc: 664 Interpretive Statements Sinus rhythm Borderline T abnormalities, anterior leads Prolonged QT interval Electronically Signed On 09-06-2025 16:53:[address] EWA Conley Please click the below link to view image of tracing.
--- NOTE | 2025-09-06 05:31 | RADIOLOGY REPORT ---
CHEST RADIOGRAPH Indication: CP Technique: Single frontal view of the chest was obtained. Comparison: None FINDINGS: Lines and Tubes: None Lungs: No focal consolidation. Pleura: No effusion. No pneumothorax. Cardiomediastinal contours: Unremarkable Bones: No acute osseous abnormality. IMPRESSION: 1. No acute cardiopulmonary disease.
[2025-09-06] MEDS: methylnaltrexone br 12mg/0.6ml inj***SubQ only SQ ONE (06:13)
[2025-09-06 06:19] LABS: CREATININE 1.08 MG/DL (0.40-0.90); PRO BRAIN NATRIURETIC PEPTIDE 54 PG/ML (0-125); TOTAL CARBON DIOXIDE 21.9 MMOL/L (24-32); eCRCL 44 ML/MIN; eGFR 51 ML/MIN
[2025-09-06 06:46] LABS: MEAN PLATELET VOLUME 7.7 FL (7.4-10.4); RED CELL DISTRIBUTION WIDTH 17.9 % (11.5-14.5)
[2025-09-06 08:56] VITALS: BP 122/60; PULSE 67; RESP 18; TEMP 97.4; O2SAT 98
== END 2025-09-06 09:01 | disposition home or self-care (01) ==
LOC: ER 04:52
DX: R07.89 Other chest pain (principal); Z88.8 Allergy status to other drugs, medicaments and biological substances; Z79.899 Other long term (current) drug therapy; Z79.84 Long term (current) use of oral hypoglycemic drugs
CPT/HCPCS: 36415; 71045; 80048; 83880; 84484; 85025; 93005; 96372; 99285; J2212

== ENCOUNTER 2025-10-15 12:15 | Emergency (ER) | payer MEDICARE, BC, MEDICAID ==
[~2025-10-15] VITALS: Ht 162.6 cm; Wt 75.0 kg
[~2025-10-15 12:15] MED LIST changes: -OXYC-658; +OXYC-658 PO
[2025-10-15 12:55] LABS: MEAN PLATELET VOLUME 7.7 FL (7.4-10.4); RED CELL DISTRIBUTION WIDTH 14.8 % (11.5-14.5)
[2025-10-15 13:19] LABS: CREATININE 1.03 MG/DL (0.40-0.90); ETHANOL < 10 MG/DL (<10); TOTAL CARBON DIOXIDE 25.0 MMOL/L (24-32); eCRCL 46 ML/MIN; eGFR 54 ML/MIN
--- NOTE | 2025-10-15 15:20 | Physician Documentation ---
History of Present Illness ~ Chief Complaint: Mental Health Eval Stated Complaint: SI/HI Time Seen by MD: 15:01 Primary Medical Doctor: FINA CHANG HPI 65-year-old female with a known history of chronic pain due to pelvic fracture and is follow up with [facility]. Has suprapubic catheter draining well. 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 brought to the emergency department because she voiced SI intent to kill herself by overdosing. She is alert and oriented. Her conversation speech comprehensible and clear. Screening labs were obtained upon arrival with the ED. These has been reviewed by myself. Patient is clear for behavioral health evaluation. Medication Reconciliation Allergies: Coded Allergies: Aminopyridines (Verified Allergy, Severe, 10/15/25) frovatriptan (Verified Allergy, Unknown, 10/15/25) glatiramer (copolymer 1) (Verified Allergy, Unknown, 09/06/25) omega-3 acid ethyl esters (Verified Allergy, Unknown, 10/15/25) phentermine (Verified Allergy, Unknown, 10/15/25) sumatriptan (Verified Allergy, Unknown, 10/15/25) Scheduled Atogepant (Qulipta), 1 TAB PO DAILY, (Reported) Clonidine HCl (Clonidine HCl), 1 TAB PO BID, (Reported) Clopidogrel Bisulfate (Clopidogrel), 1 TAB PO DAILY, (Reported) Duloxetine HCl (Duloxetine HCl), 1 CAP PO DAILY, (Reported) Gabapentin (Gabapentin), 1 TAB PO TID, (Reported) Levetiracetam (Levetiracetam), 2 TAB PO BID, (Reported) Memantine HCl (Memantine HCl), 1 TAB PO HS, (Reported) Metformin HCl (Metformin HCl), 1 TAB PO DAILY, (Reported) Oxybutynin Chloride (Oxybutynin Chloride), 1 TAB PO TID, (Reported) Pantoprazole Sodium (Pantoprazole Sodium), 1 TAB PO DAILY, (Reported) Phenazopyridine Hcl* (Phenazopyridine Hcl*), 1 TAB PO Q8H, (Reported) Risperidone (Risperidone), 1 TAB PO HS, (Reported) Scheduled PRN ONDANSETRON ODT 4mg tablet (Ondansetron Odt), 1 TAB PO Q8H PRN for nausea/vomiting, (Reported) Oxycodone Hcl IR* (Oxycodone IR*), 1 TAB PO Q6H PRN for pain, (Reported) Miscellaneous Medications Estradiol (Estradiol), (Reported) Discontinued Medications Fosfomycin Tromethamine (Fosfomycin Tromethamine), 1 PO ONCE, (Reported) Discontinued Reason: MD order Syringe,Safety W-Ndl,3Ml (Integra Syringe), IM, (Reported), (DME) Discontinued Reason: MD order Review of Systems All Other Systems at this time: Reviewed and Negative Psychiatric: Reports: see HPI Physical Exam Vital Signs: RN Vital Signs have been reviewed: Yes, Temperature: 98.2, Source: Temporal, Heart Rate: 88, Respiratory Rate: 16, BP: 132/78, Pulse Oximetry: 95, Weight: 75.000 Oxygen Flow Rate: 0 General Appearance: alert, WD/WN, mild distress EENT: PERRL/EOMI Head: normal inspection Neck: non-tender Respiratory: lungs clear Chest: no accessory muscle use Cardiovascular: normal peripheral pulses, regular rate, rhythm Gastrointestinal: non-tender Extremities: non-tender Back: normal inspection Neurologic: oriented x4 Motor / Sensory: no motor deficit Skin: warm/dry Progress Results/Orders Results/Orders Orders - YODIT RICHARDSON Clopidogrel Tablet (Plavix Tablet) (10/16/25 08:00) Ondansetron Disint. Tablet (Zofran Odt T (10/15/25 16:45) Oxybutynin Cl Tablet (Ditropan Tablet) (10/15/25 21:00) Pantoprazole Tablet (Protonix) (10/16/25 07:30) Miscellaneous (Patient's Own Medication) (10/16/25 08:00) Clonidine Tablet (Catapres Tablet) (10/15/25 20:00) Duloxetine 30mg Capsule. (Cymbalta 30m (10/16/25 08:00) Gabapentin Capsule (Neurontin Capsule) (10/15/25 21:00) Levetiracetam Tablet (Keppra Tablet) (10/15/25 20:00) Memantine Tablet (Namenda Tablet) (10/15/25 21:00) Metformin Tablet (Glucophage Tablet) (10/16/25 08:00) Phenazopyridine Tablet (Pyridium Tablet) (10/16/25 00:00) Risperidone Tablet (Risperdal Tablet) (10/15/25 21:00) Oxycodone Immed Release Tablet (Oxy Ir T (10/15/25 16:50) 1799.11 (10/15/25 ) Medications Received in ER Medications (Trade) Dose Ordered Sig/Brianna Route PRN Reason Start Time Stop Time Status Last Admin Dose Admin (Ditropan tablet) 5 mg TID PO 10/15/25 21:00 10/15/25 22:26 5 MG (Catapres tablet) 0.3 mg BID PO 10/15/25 20:00 10/15/25 20:08 0.3 MG (Neurontin capsule) 600 mg TID PO 10/15/25 21:00 10/15/25 22:26 600 MG (Keppra tablet) 1,500 mg BID PO 10/15/25 20:00 10/15/25 20:09 1,500 MG (Namenda tablet) 10 mg HS PO 10/15/25 21:00 10/15/25 22:27 10 MG (Pyridium tablet) 200 mg Q8H PO 10/16/25 00:00 10/15/25 23:54 200 MG (Risperdal tablet) 1 mg HS PO 10/15/25 21:00 10/15/25 22:26 1 MG (OXY IR tablet) 5 mg Q6H PRN PO pain 10/15/25 16:50 10/15/25 17:03 5 MG Vital Signs 10/15/25 10/15/25 10/15/25 10/15/25 12:23 15:27 17:03 17:42 Temp 98.2 98.9 Pulse 88 84 Resp 16 16 16 16 B/P (MAP) 132/78 134/80 (98) Pulse Ox 95 94 O2 Flow Rate 0 0 10/15/25 10/15/25 17:57 19:00 Resp 18 16 B/P (MAP) Laboratory Tests Test 10/15/25 12:42 10/15/25 17:55 White Blood Count 7.5 Red Blood Count 4.32 Hemoglobin 12.9 Hematocrit 39.6 Mean Corpuscular Volume 91.7 Mean Corpuscular Hemoglobin 29.7 Mean Corpuscular Hemoglobin Concent 32.4 L Red Cell Distribution Width 14.8 H Platelet Count 386 Mean Platelet Volume 7.7 Neutrophils (%) (Auto) 74.7 Lymphocytes (%) (Auto) 17.8 L Monocytes (%) (Auto) 3.9 Eosinophils (%) (Auto) 3.0 Basophils (%) (Auto) 0.6 Neutrophils # (Auto) 5.6 Lymphocytes # (Auto) 1.3 Monocytes # (Auto) 0.3 Eosinophils # (Auto) 0.2 Basophils # (Auto) 0.0 CBC Comment Sodium Level 139 Potassium Level 4.6 Chloride Level 105 Carbon Dioxide Level 25.0 Anion Gap 9 Blood Urea Nitrogen 26 H Creatinine 1.03 H Estimated GFR/1.73 m2 54 BUN/Creatinine Ratio 25.2 H Glucose Level 225 H Calcium Level 9.7 Albumin 3.4 Thyroid Stimulating Hormone (TSH) 0.68 Chemistry Comments Ethyl Alcohol Level < 10 Urine Specimen Description Monahan cath Urine Color Yellow Urine Clarity Cloudy Urine pH 6.0 Urine Specific Silva 1.020 Urine Protein 30 H Urine Glucose (UA) Negative Urine Ketones Negative Urine Occult Blood Moderate H Urine Nitrite Negative Urine Bilirubin Negative Urine Urobilinogen 0.2 Urine Leukocyte Esterase Moderate H Urine RBC 10-20 Urine WBC Tntc H Urine Squamous Epithelial Cells Few Urine Transitional Epithelial Cells Few Urine Bacteria 2+ Urine Mucus Few Volume Urine Centrifuged 10 ml Urine Comment Urine Opiates Screen Negative Urine Methadone Screen Negative Urine Fentanyl Screen Negative Urine Barbiturates Screen Negative Urine Phencyclidine Screen Negative Urine Amphetamines Screen Negative Urine Benzodiazepines Screen Negative Urine Cocaine Screen Negative Urine Cannabinoids Screen Negative Drug Screen Comment Microbiology Date/Time Source Procedure Growth Status 10/15/25 14:02 Nasal Swab MRSA Screen - Preliminary Culture received. Resulted Medical Decision Making Additional information obtaine: N/A Findings 65-year-old female brought to the emergency department for SI screening. Screening labs obtained and reviewed. Patient is medically cleared for behavioral health evaluation. Patient is not requiring any medications at this time. She rests comfortably. Differential Dx:Considerations: Include: Alcohol abuse, Anxiety, Bipolar disorder, Conversion disorder, Depression, Encephaloathy, Homicidal, Panic disorder, Personality disorder, Schizophrenia, Substance abuse, Suicidal, Other Departure Impression: Primary Impression: Suicidal ideation Referrals: NO PRIMARY CARE PROVIDER (PCP) Signature Scribe Signature: . Attestation: . YODIT RICHARDSON PAC Oct 15, 2025 15:20
[2025-10-15] MEDS ORDERED: ondansetron 4mg rapidly disintigrating tab PO PRN (16:45)
[2025-10-15] MEDS: oxyCODONE IR 5mg (immed. release) tablet PO PRN (17:03)
[2025-10-15 18:08] LABS: LEUKOCYTE ESTERASE ,URINE MODERATE (Neg); OCCULT BLOOD,URINE MODERATE (Neg)
[2025-10-15 18:19] LABS: UA COLLECTION TYPE FOLEY CATH
[2025-10-15 18:20] LABS: NITRITES, URINE NEGATIVE (Neg)
[2025-10-15 18:21] LABS: MUCUS STRANDS FEW /LPF (Neg); SQUAMOUS EPITHELIAL CELL,UR FEW /LPF (FEW)
[2025-10-15 18:29] LABS: URINE AMPHETAMINE SCREEN NEGATIVE (Neg); URINE BARBITUATE SCREEN NEGATIVE (Neg); URINE BENZODIAZEPINES SCREEN NEGATIVE (Neg); URINE CANNABINOID SCREEN NEGATIVE (Neg); URINE COCAINE SCREEN NEGATIVE (Neg); URINE METHADONE SCREEN NEGATIVE (Neg); URINE OPIATE SCREEN NEGATIVE (Neg); URINE PHENCYCLIDINE SCREEN NEGATIVE (Neg)
[2025-10-15] MEDS: phenazopyridine 100mg tablet PO SCH (23:54)
[2025-10-16 05:26] VITALS: BP 132/78; PULSE 78; TEMP 98.6; O2SAT 94
[2025-10-16] MEDS: duloxetine 30mg CAPSULE.DR PO SCH (08:08)
[2025-10-16] MEDS: pantoprazole 40mg Tablet.DR PO SCH (08:09)
[2025-10-16 15:36] VITALS: RESP 18
== END 2025-10-16 15:43 ==
LOC: ER 12:17
DX: R45.851 Suicidal ideations (principal); G89.29 Other chronic pain; Z88.8 Allergy status to other drugs, medicaments and biological substances; Z79.899 Other long term (current) drug therapy; Z20.822 Contact with and (suspected) exposure to COVID-19
CPT/HCPCS: 36415; 80048; 80305; 81001; 84443; 85025; 87081; 99285; A6258; G0480; 80320